=== PATIENT | female | born 1995 | race Two or more races ===

== ENCOUNTER 2021-03-02 20:59 | Emergency (ER) | payer MEDICAID, OTHER ==
[~2021-03-02] VITALS: Ht 157.5 cm; Wt 89.8 kg
[2021-03-02 20:59] VITALS: BP 144/93
== END 2021-03-03 02:31 | disposition left against medical advice (07) ==
LOC: ER 21:01
DX: R21 Rash and other nonspecific skin eruption (principal); L29.9 Pruritus, unspecified; Z53.21 Procedure and treatment not carried out due to patient leaving prior to being seen by health care provider